=== PATIENT | male | born 1960 | race Caucasian/White ===

== ENCOUNTER 2022-05-11 09:37 | Inpatient (IN) | payer MEDICAID ==
[2022-05-02 15:56] LABS: BASOPHILS # (AUTO) 0.1 X10'3 (0-0.2); BASOPHILS % (AUTO) 1.1 % (0-1); EOSINOPHILS # (AUTO) 0.3 X10'3 (0-0.9); EOSINOPHILS % (AUTO) 6.2 % (0-6); LYMPHOCYTES # (AUTO) 1.7 X10'3 (1.1-4.8); LYMPHOCYTES % (AUTO) 30.8 % (21-51); MEAN CORPUSCULAR HEMOGLOBIN 31.6 PG (27.0-31.0); MEAN CORPUSCULAR HGB CONC 34.2 g/dL (33.0-36.5); MEAN CORPUSCULAR VOLUME 92.4 FL (78-98); MEAN PLATELET VOLUME 7.4 FL (7.4-10.4); MONOCYTES # (AUTO) 0.5 X10'3 (0-0.9); MONOCYTES % (AUTO) 9.4 % (2-12); NEUTROPHILS # (AUTO) 2.8 X10'3 (1.8-7.7); NEUTROPHILS % (AUTO) 52.5 % (42-75); PRE OP HEMATOCRIT 47.1 % (42.0-52.0); PRE OP HEMOGLOBIN 16.1 g/dL (14.0-17.9); PRE OP PLATELET COUNT 292 X10'3 (140-440); RED CELL DISTRIBUTION WIDTH 14.1 % (11.5-14.5)
[2022-05-02 16:01] LABS: TOTAL CARBON DIOXIDE 27.6 MMOL/L (24-32)
[2022-05-02 16:33] LABS: ALBUMIN 4.1 G/DL (3.4-5.0); ALBUMIN/GLOBULIN RATIO 1.3 (1.1-1.5); ALKALINE PHOSPHATASE 76 IU/L (46-116); BLOOD UREA NITROGEN 18 MG/DL (7-18); BUN/CREATININE RATIO 18.2 (10.0-20.0); CHLORIDE 103 MMOL/L (99-107); CREATININE 0.99 MG/DL (0.60-1.10); PRE OP ALT 28 U/L (30-65); PRE OP ANION GAP 8 (8-16); PRE OP AST 25 U/L (10-37); PRE OP BILIRUB, TOTAL 0.3 MG/DL (0.0-1.0); PRE OP GLUCOSE 89 MG/DL (70-104); PRE OP POTASSIUM 4.3 MMOL/L (3.4-5.1); PRE OP SODIUM 139 MMOL/L (135-145); TOTAL PROTEIN 7.3 G/DL (6.4-8.2); eGFR 76 ML/MIN
[~2022-05-11] VITALS: Ht 185.4 cm; Wt 95.3 kg
[2022-05-11] VITALS (21 sets, daily range): BP systolic 70–126; BP diastolic 34–83
[~2022-05-11 09:37] MED LIST: ASPI-101 PO; DILT240C88 PO; DILT60TA41 PO; cefazolin 2gm/D5W 100mL 100 ML IV ONE; ringers solution, lacted 1,000 ML IV SCH; tetracaine 1% (10mg/ml) pres. free inj. ONE; tranexamic acid inj. 1,000 MG in normal saline IV soln 100ML IV ONE; vancomycin 1,500 MG in NS 300ml IV soln IV ONE
--- NOTE | 2022-05-11 09:45 | NUR ---
TOTAL JOINT CHARTING: COMPLETED 5 DAYS PREOP MUPIROCIN OINTMENT AND HIBICLENS SHOWERS. [facility]'S WNL. LEFT DORSALIS PEDAL PULSE STRONG AND MARKED. DID NOT WATCH THE VIDEO, HOWEVER READ THE BOOKLET AND RELEVANT MATERIAL. Addendum: 05/11/22 at 1150 by Ann Ryan RN Amended: Links added.
[2022-05-11] MEDS ORDERED: famotidine 20mg tablet PO ONE (10:36)
[2022-05-11] MEDS ORDERED: epiNEPHrine 1 mg/ml inj ONE (11:09)
[2022-05-11] MEDS ORDERED: vancomycin 1,000mg inj ONE (11:10)
[2022-05-11] MEDS ORDERED: morphine 10mg/ml inj. ONE (11:10)
[2022-05-11] MEDS ORDERED: MIDAZolam 1mg/ml 10ml vial ONE (11:32)
[2022-05-11] MEDS ORDERED: LIDOcaine 2% (20mg/ml) 5ml vial ONE (11:33)
[2022-05-11] MEDS ORDERED: propofol inj 20 ML IV ONE ×2 (11:33)
[2022-05-11] MEDS ORDERED: fentaNYL/PF 50MCG/1 ML 2ML syringe ONE (11:33)
[2022-05-11] MEDS ORDERED: ROPIVAcaine 0.5% (5mg/ml) 30ml vial ONE ×2 (11:36→13:46)
[2022-05-11] MEDS ORDERED: fentaNYL/PF 50MCG/1 ML 2ML syringe IV PRN ×2 (11:40)
[2022-05-11] MEDS ORDERED: morphine 2 MG/ML inj. syringe IV PRN (11:40)
[2022-05-11] MEDS ORDERED: morphine 4 MG/ML inj SYRINge IV PRN (11:40)
[2022-05-11] MEDS ORDERED: ringers solution, lacted 1,000 ML IV SCH (11:40)
[2022-05-11] MEDS ORDERED: labetalol 20mg/4ml (5mg/ml) syringe IV PRN (11:40)
[2022-05-11] MEDS ORDERED: hydrALAZINE 20mg/ml inj. IV PRN (11:40)
[2022-05-11] MEDS ORDERED: ondansetron/PF 4mg/2ml inj IV PRN ×2 (11:40→14:40)
[2022-05-11] MEDS ORDERED: amiodarone in dextrose, iso-osm 150mg/100ml bag IV ONE (12:01)
[2022-05-11] MEDS ORDERED: desflurane 240ml liquid inh. IH ONE (12:01)
[2022-05-11] MEDS ORDERED: ROPIVAcaine 0.5% (5mg/ml) 30ml vial IJ ONE (13:04)
[2022-05-11] MEDS ORDERED: morphine 10mg/ml inj. IV ONE (13:06)
[2022-05-11] MEDS ORDERED: epiNEPHrine 1 mg/ml inj IM ONE (13:07)
[2022-05-11] MEDS ORDERED: dexamethasone sod phosphate 4mg/ml inj. ONE (13:46)
[2022-05-11] MEDS ORDERED: acetaminophen 325mg tablet PO PRN (14:40)
[2022-05-11] MEDS ORDERED: magnesium hydroxide 30ml (MOM) UD suspension PO PRN (14:40)
[2022-05-11] MEDS ORDERED: HYDROmorphone 1 mg/ml syringe IV PRN (14:40)
[2022-05-11] MEDS ORDERED: diphenhydrAMINE 25mg capsule PO PRN ×2 (14:40)
[2022-05-11] MEDS ORDERED: oxyCODONE IR 5mg (immed. release) tablet PO PRN ×2 (14:40)
[2022-05-11] MEDS ORDERED: naloxone 0.4 mg/ml inj IV PRN (14:40)
[2022-05-11] MEDS ORDERED: bisacodyl 10mg suppository rectal RC PRN (14:40)
[2022-05-11] MEDS ORDERED: HYDROmorphone inj. 0.5 MG/0.5 ML DISP.SYRIN IV PRN (14:40)
--- NOTE | 2022-05-11 15:00 | NUR ---
Received from OR via SURGICAL BED , accompanied by Anesthesiologist JED and report given by Anesthesiolgist. PATIENT WITH 20GPIV IN RIGHT FA RUNNING LR AT 100. STELLA AT THIS TIME. SPINAL LEVEL AT T6 AT THIS TIME. SCDS DONNED AND +DPS BILATERALLY. 10L MASK ON WITH 100% SATURATIONS. VSS AT THIS TIME. Addendum: 05/11/22 at 1532 by Yaakov Whiteside RN, RN Amended: Links added.
[2022-05-11] MEDS: ROPIVAcaine 0.2%/PF PUMP/bolus 545 ML ADDCANAL SCH (16:07)
[2022-05-11] MEDS ORDERED: diltiazem 30mg tablet PO PRN (16:10)
--- NOTE | 2022-05-11 16:40 | NUR ---
Report called to receiving nurse. Transferred via ORTHO BED WITH 2 BAGS OF LABELED Belongings . Special Issues communicated to receiving nurse PAULA BRUSH.VSS, DENIES PAIN. SENSATION LEVEL AT T 10 CURRENTLY. PATIENT REPORT GIVEN AND ALL QUESTIONS ANSWERED. ACCOMPANIED PATIENT TO THE FLOOR.ALL QUESTIONS ANSWERED AND VSS. Addendum: 05/11/22 at 1651 by Yaakov Whiteside RN RN Amended: Links added.
--- NOTE | 2022-05-11 16:45 | NUR ---
Received report from Yaakov BRUSH, patient arrived to floor via hospital bed assisted by recovery room staff accompanied by his . Patient is AOx4 able to make needs known. VS obtained and stable, patient denies pain at this time. Assessment performed, reposition assisted, and orientation provided to room/call light. Patient states understanding.
[2022-05-11] MEDS: ceFAZolin/D5W- 1GM premix 50 ML IV SCH (17:21)
[2022-05-11] MEDS ORDERED: tranexamic acid inj. 950 MG in normal saline 100ml IV soln 90.5 ML IV ONE (18:00)
--- NOTE | 2022-05-11 18:00 | NUR ---
I have reviewed and agree with interventions, assessments and documentation by Kassidy Pascual LVN.
--- NOTE | 2022-05-11 18:16 | NUR ---
Patient reports that he feels "chest tightness, this happens occasionally with my afib and I'll take 1 60mg diltiazem, if that doesn't doesn't resolve it then I'll take one more. If I don't take something then it'll feel like a donkey is kicking my chest, HR will go up to 180's." Dr. Irving contacted and notified, orders were already acknowledged for 60mg diltiazem PRN for chest palpitations. Noted and carried out. HR remains stable fluctuating from 65-80's. Information provided in report to oncoming nurse. Addendum: 05/11/22 at 1829 by Kassidy Loera LVN Patient denies SOB, chest pain, dizziness, and changes to vision
--- NOTE | 2022-05-11 18:28 | NUR ---
Problems reprioritized. Patient report given, questions answered & plan of care reviewed with Yinka BRUSH.
[2022-05-11] MEDS ORDERED: vancomycin/NS 1 GM ADD-VANTAGE 250 ML IV SCH (20:00)
[2022-05-11] MEDS: sennosides 8.6mg tablet PO SCH (20:04)
[2022-05-11] MEDS: gabapentin 300mg capsule PO SCH (20:06)
[2022-05-11] MEDS: acetaminophen 325mg tablet PO SCH (20:06)
[2022-05-11] MEDS: potassium cl 20mEq in 1/2 NS 1,000 ML IV SCH (22:40)
[2022-05-11] MEDS ORDERED: normal saline 500ml IV soln 500 ML IV ONE (22:45)
[2022-05-12] VITALS (17 sets, daily range): BP systolic 77–113; BP diastolic 47–72
[2022-05-12] MEDS: ceFAZolin/D5W- 1GM premix 50 ML IV SCH (00:04)
[2022-05-12] MEDS: potassium cl 20mEq in 1/2 NS 1,000 ML IV SCH ×4 (02:00→21:24)
[2022-05-12] MEDS: acetaminophen 325mg tablet PO SCH ×4 (02:06→20:11)
--- NOTE | 2022-05-12 06:45 | NUR ---
Approximally 1999, 05/11/22 pt B/P went down to 70/35. Called Dr Irving. He ordered 500 ml bolus of NS. Systolic B/P returned to greater than 100.
--- NOTE | 2022-05-12 06:51 | NUR ---
Patient in room [facility] 340. I have received report from Yinka BRUSH and had the opportunity to ask questions and assume patient care.
--- NOTE | 2022-05-12 07:43 | NUR ---
Call placed to Dr. Irving to notify of patient c/o dizziness while working with PT. Orthostatic BP obtained, BP while sitting 96/56 HR 56, BP while standing 79/50 HR 70. Patient reports dizziness while standing. Received telephone order to hold scheduled diltiazeMD ana will request hospitalist. Patient is in bed resting at this time, denies dizziness, changes to vision, SOB, and chest pain. Will continue to assess for any changes
[2022-05-12] MEDS ORDERED: diltiazem CD 120mg capsule (once-daily) PO SCH (08:00)
[2022-05-12] MEDS ORDERED: enoxaparin 40mg/0.4ml syringe SQ SCH (08:00)
[2022-05-12] MEDS: gabapentin 300mg capsule PO SCH ×3 (08:52→20:11)
[2022-05-12] MEDS ORDERED: traMADol 50MG tablet PO PRN (09:10)
[2022-05-12] MEDS: traMADol 50MG tablet PO PRN ×2 (09:27→13:22)
[2022-05-12 09:47] LABS: ALANINE AMINOTRANSFERASE 20 U/L (12-78); ALBUMIN 3.1 G/DL (3.4-5.0); ALBUMIN/GLOBULIN RATIO 1.1 (1.1-1.5); ALKALINE PHOSPHATASE 58 IU/L (46-116); ANION GAP 6 (8-16); ASPARTATE AMINO TRANSFERASE 17 U/L (10-37); BILIRUBIN,TOTAL 0.5 MG/DL (0.1-1.0); BLOOD UREA NITROGEN 12 MG/DL (7-18); BUN/CREATININE RATIO 13.2 (10.0-20.0); CALCIUM 7.9 MG/DL (8.5-10.1); CHLORIDE 105 MMOL/L (99-107); CREATININE 0.91 MG/DL (0.60-1.10); GLUCOSE 123 MG/DL (70-104); POTASSIUM 4.3 MMOL/L (3.5-5.1); SODIUM 137 MMOL/L (135-145); TOTAL CARBON DIOXIDE 26.3 MMOL/L (24-32); TOTAL PROTEIN 5.8 G/DL (6.4-8.2); eGFR 84 ML/MIN
--- NOTE | 2022-05-12 10:38 | NUR ---
0900- BP noted 108/65, patient continues to deny symptoms of hypotension. AOx4, able to make needs known. 1030- BP noted 91/57, patient has 1/2 NS 20K infusing at 125ml/hr, still continues with no symptoms. Page sent to hospitalist PAGER ID: [phone] MESSAGE: [phone]- Please call me regarding patient's BP, ASHLEY Yi [phone]
[2022-05-12] MEDS ORDERED: normal saline 500ml IV soln 500 ML IV ONE (10:45)
[2022-05-12 11:12] LABS: BASOPHILS % (AUTO) 0.1 % (0-1); EOSINOPHILS % (AUTO) 0 % (0-6); HEMATOCRIT 40.5 % (42.0-52.0); HEMOGLOBIN 13.3 g/dl (14.0-17.9); LYMPHOCYTES # (AUTO) 0.7 X10'3 (1.1-4.8); LYMPHOCYTES % (AUTO) 5.3 % (21-51); MEAN CORPUSCULAR HEMOGLOBIN 30.5 PG (27.0-31.0); MEAN CORPUSCULAR HGB CONC 32.9 g/dL (33.0-36.5); MEAN CORPUSCULAR VOLUME 92.6 FL (78-98); MEAN PLATELET VOLUME 7.9 FL (7.4-10.4); MONOCYTES % (AUTO) 7.5 % (2-12); NEUTROPHILS # (AUTO) 11.7 X10'3 (1.8-7.7); NEUTROPHILS % (AUTO) 87.1 % (42-75); PLATELET COUNT 251 X10'3 (140-440); RED BLOOD COUNT 4.38 X10'6 (4.70-6.10); RED CELL DISTRIBUTION WIDTH 14.1 % (11.5-14.5); WHITE BLOOD COUNT 13.4 X10'3 (4.5-11.0)
--- NOTE | 2022-05-12 11:45 | NUR ---
Joint surgery consult: Pt s/p L knee surgery this admit per EMR. Pt seen by NA for written/verbal high protein diet ed w/ RD contact information provided. NA encouraged pt to contact dietitian's office if nutrition questions/concerns. Addendum: 05/12/22 at [address] Amended: Links added.
--- NOTE | 2022-05-12 14:49 | NUR ---
There is not an order for ramos catheter. 10cc sterile water obtained from the ballon, ramos catheter removed and patient tolerated well. Urinal provided and encouraged to use
[2022-05-12] MEDS ORDERED: morphine 2 MG/ML inj. syringe IV PRN (16:10)
--- NOTE | 2022-05-12 16:19 | NUR ---
Patient up to work with PT BP while laying down 111/70 HR 80 sitting 103/67 HR 77 Patient reports some dizziness standing 77/47 HR 68 Patient reports dizziness laying back down 100/54 HR [address] Swenson notified, also notified that patient reports unrelieved pain from tramadol. New order for patient to wear ABD binder and for 2mg morphine IV PRN Q4 for severe pain unrelieved by PO medication. Patient notified and agreeable, requesting to try brandon. paged, awaiting response
[2022-05-12] MEDS: HYDROcodone/acetaminophen 5mg/325mg tablet PO PRN ×2 (16:56→21:24)
--- NOTE | 2022-05-12 19:12 | NUR ---
Problems reprioritized. Patient report given, questions answered & plan of care reviewed with Prudence RN.
--- NOTE | 2022-05-12 19:31 | NUR ---
Patient in room [facility]. I have received report from PAULA TAYLOR and had the opportunity to ask questions and assume patient care.
[2022-05-12] MEDS: celeCOXIB 100mg capsule PO SCH (20:10)
[2022-05-12] MEDS: sennosides 8.6mg tablet PO SCH (20:11)
[2022-05-12] MEDS: apixaban 5mg tablet PO SCH (20:11)
[2022-05-13] VITALS (7 sets, daily range): BP systolic 97–131; BP diastolic 49–76
[2022-05-13] MEDS: acetaminophen 325mg tablet PO SCH ×3 (02:00→14:00)
[2022-05-13] MEDS: HYDROcodone/acetaminophen 5mg/325mg tablet PO PRN ×5 (02:23→21:18)
--- NOTE | 2022-05-13 06:21 | NUR ---
Problems reprioritized. Patient report given, questions answered & plan of care reviewed with CONCEPCIÓN TAYLOR.
--- NOTE | 2022-05-13 06:38 | NUR ---
Received report from GONSALO Tejada. Went over plan of care, concerns, questions. Patient checked on, NAD at this time. Bed in lowest position/ locked, call blayne w/ in reach.
--- NOTE | 2022-05-13 06:46 | NUR ---
Patient in room [facility] 340. I have received report from Madiha WATTS and had the opportunity to ask questions and assume patient care. Pt is laying supine in bed, and is resting comfortably. Pt on RA. No s/s of distress, or s/s of pain at this time. BLL, call light wihtin reach, frequently used items inreach, frequent rounding, manager state socks on, will continue to monitor. Addendum: 05/13/22 at 0757 by Asha Gutiérrez RN Report received for 340 bed B, not 340a
[2022-05-13] MEDS: potassium cl 20mEq in 1/2 NS 1,000 ML IV SCH (07:15)
[2022-05-13] MEDS: apixaban 5mg tablet PO SCH ×2 (08:28→21:19)
[2022-05-13] MEDS: celeCOXIB 100mg capsule PO SCH ×2 (08:29→21:18)
[2022-05-13] MEDS: gabapentin 300mg capsule PO SCH ×3 (08:29→21:17)
[2022-05-13] MEDS: ROPIVAcaine 0.2% (10 MG/5 ML) BOLUS INJECTION ADDCANAL PRN (11:13)
[2022-05-13] MEDS: ROPIVAcaine 0.2%/PF PUMP/bolus 545 ML ADDCANAL SCH (11:15)
--- NOTE | 2022-05-13 13:43 | NUR ---
PT just got done ambulating/ evaluating s/p Sx. Informed me the patient is doing fair, vitals stayed in range this time while ambulating. Noted the patient to stay one more night due to lack of mobility at this time.
[2022-05-13] MEDS ORDERED: acetaminophen 325mg tablet PO PRN (14:40)
--- NOTE | 2022-05-13 18:04 | NUR ---
Placed pt on TELE number [id number]
[2022-05-13] MEDS: sennosides 8.6mg tablet PO SCH (21:19)
[2022-05-14] VITALS (8 sets, daily range): BP systolic 95–129; BP diastolic 56–80
[2022-05-14] MEDS: HYDROcodone/acetaminophen 5mg/325mg tablet PO PRN ×5 (02:59→21:44)
[2022-05-14] MEDS ORDERED: HYDROcodone/acetaminophen 5mg/325mg tablet PO ONE (05:00)
--- NOTE | 2022-05-14 06:59 | NUR ---
Patient in room [facility]. I have received report from Pawan Tovar RN and had the opportunity to ask questions and assume patient care.
--- NOTE | 2022-05-14 07:07 | NUR ---
Received call from Tele monitor, converted to A-fib. around Midnight. Hospitalist notified.
[2022-05-14] MEDS: apixaban 5mg tablet PO SCH ×2 (07:23→19:28)
[2022-05-14] MEDS: celeCOXIB 100mg capsule PO SCH ×2 (07:23→19:28)
[2022-05-14] MEDS: gabapentin 300mg capsule PO SCH ×3 (07:23→20:03)
[2022-05-14] MEDS ORDERED: normal saline 500ml IV soln 500 ML IV ONE (10:00)
[2022-05-14] MEDS: CefTRIAXone/D5W-Rocephin 1gm 50 ML IV SCH (12:13)
[2022-05-14 12:34] LABS: BASOPHILS # (AUTO) 0.1 X10'3 (0-0.2); BASOPHILS % (AUTO) 0.9 % (0-1); EOSINOPHILS # (AUTO) 0.2 X10'3 (0-0.9); EOSINOPHILS % (AUTO) 2.3 % (0-6); HEMATOCRIT 35.1 % (42.0-52.0); HEMOGLOBIN 12.3 g/dl (14.0-17.9); LYMPHOCYTES # (AUTO) 0.6 X10'3 (1.1-4.8); LYMPHOCYTES % (AUTO) 6.7 % (21-51); MEAN CORPUSCULAR HEMOGLOBIN 32.3 PG (27.0-31.0); MEAN CORPUSCULAR HGB CONC 35.1 g/dL (33.0-36.5); MEAN CORPUSCULAR VOLUME 91.9 FL (78-98); MEAN PLATELET VOLUME 7.6 FL (7.4-10.4); MONOCYTES # (AUTO) 0.6 X10'3 (0-0.9); MONOCYTES % (AUTO) 6.4 % (2-12); NEUTROPHILS # (AUTO) 7.3 X10'3 (1.8-7.7); NEUTROPHILS % (AUTO) 83.7 % (42-75); PLATELET COUNT 191 X10'3 (140-440); RED BLOOD COUNT 3.82 X10'6 (4.70-6.10); RED CELL DISTRIBUTION WIDTH 14.2 % (11.5-14.5); WHITE BLOOD COUNT 8.7 X10'3 (4.5-11.0)
[2022-05-14 12:49] LABS: ALANINE AMINOTRANSFERASE 18 U/L (12-78); ALBUMIN 2.8 G/DL (3.4-5.0); ALBUMIN/GLOBULIN RATIO 0.7 (1.1-1.5); ALKALINE PHOSPHATASE 58 IU/L (46-116); ANION GAP 5 (8-16); ASPARTATE AMINO TRANSFERASE 22 U/L (10-37); BILIRUBIN,TOTAL 0.4 MG/DL (0.1-1.0); BLOOD UREA NITROGEN 11 MG/DL (7-18); CALCIUM 8.5 MG/DL (8.5-10.1); CHLORIDE 102 MMOL/L (99-107); GLUCOSE 92 MG/DL (70-104); SODIUM 135 MMOL/L (135-145); TOTAL CARBON DIOXIDE 27.8 MMOL/L (24-32); TOTAL PROTEIN 6.6 G/DL (6.4-8.2); eGFR 75 ML/MIN
[2022-05-14] MEDS ORDERED: thiamine 100mg tablet PO ONE (14:55)
--- NOTE | 2022-05-14 18:25 | NUR ---
Problems reprioritized. Patient report given, questions answered & plan of care reviewed with Darian BRUSH.
[2022-05-14] MEDS: sennosides 8.6mg tablet PO SCH (20:03)
[2022-05-14] MEDS: ROPIVAcaine 0.2% (10 MG/5 ML) BOLUS INJECTION ADDCANAL PRN (22:44)
[2022-05-15] MEDS: HYDROcodone/acetaminophen 5mg/325mg tablet PO PRN ×3 (02:57→12:58)
--- NOTE | 2022-05-15 06:30 | NUR ---
Patient in room [facility]. I have received report from Darian BRUSH and had the opportunity to ask questions and assume patient care.
[2022-05-15 06:33] LABS: BASOPHILS % (AUTO) 0.5 % (0-1); EOSINOPHILS # (AUTO) 0.2 X10'3 (0-0.9); EOSINOPHILS % (AUTO) 2.8 % (0-6); HEMATOCRIT 34.8 % (42.0-52.0); HEMOGLOBIN 11.7 g/dl (14.0-17.9); LYMPHOCYTES # (AUTO) 0.8 X10'3 (1.1-4.8); LYMPHOCYTES % (AUTO) 11.2 % (21-51); MEAN CORPUSCULAR HGB CONC 33.8 g/dL (33.0-36.5); MEAN CORPUSCULAR VOLUME 91.8 FL (78-98); MONOCYTES # (AUTO) 0.6 X10'3 (0-0.9); MONOCYTES % (AUTO) 7.5 % (2-12); NEUTROPHILS # (AUTO) 5.9 X10'3 (1.8-7.7); PLATELET COUNT 214 X10'3 (140-440); RED BLOOD COUNT 3.79 X10'6 (4.70-6.10); RED CELL DISTRIBUTION WIDTH 14.3 % (11.5-14.5); WHITE BLOOD COUNT 7.5 X10'3 (4.5-11.0)
[2022-05-15 06:39] LABS: ALANINE AMINOTRANSFERASE 24 U/L (12-78); ALBUMIN 2.4 G/DL (3.4-5.0); ALBUMIN/GLOBULIN RATIO 0.6 (1.1-1.5); ALKALINE PHOSPHATASE 60 IU/L (46-116); ANION GAP 4 (8-16); ASPARTATE AMINO TRANSFERASE 26 U/L (10-37); BILIRUBIN,TOTAL 0.4 MG/DL (0.1-1.0); BLOOD UREA NITROGEN 7 MG/DL (7-18); BUN/CREATININE RATIO 7.3 (10.0-20.0); CALCIUM 8.5 MG/DL (8.5-10.1); CHLORIDE 105 MMOL/L (99-107); CREATININE 0.96 MG/DL (0.60-1.10); GLUCOSE 105 MG/DL (70-104); POTASSIUM 4.2 MMOL/L (3.5-5.1); SODIUM 138 MMOL/L (135-145); TOTAL CARBON DIOXIDE 28.9 MMOL/L (24-32); TOTAL PROTEIN 6.1 G/DL (6.4-8.2); eGFR 79 ML/MIN
[2022-05-15 06:52] VITALS: BP 120/74
[2022-05-15] MEDS: gabapentin 300mg capsule PO SCH ×2 (07:28→12:56)
[2022-05-15] MEDS: CefTRIAXone/D5W-Rocephin 1gm 50 ML IV SCH (07:28)
[2022-05-15] MEDS: celeCOXIB 100mg capsule PO SCH (07:28)
[2022-05-15] MEDS: apixaban 5mg tablet PO SCH (07:29)
[2022-05-15] MEDS ORDERED: HYDR-3964 PO ×2 (09:03)
[2022-05-15] MEDS ORDERED: gabapentin capsule PO (09:03)
[2022-05-15] MEDS ORDERED: APIX5TAB3 PO ×3 (09:03→10:39)
[2022-05-15] MEDS ORDERED: HYDR-3965 PO (10:37)
[2022-05-15] MEDS ORDERED: GABA300C PO (10:37)
[2022-05-15 11:36] VITALS: BP 114/69
[2022-05-15] MEDS: ROPIVAcaine 0.2%/PF PUMP/bolus 545 ML ADDCANAL SCH (11:40)
[2022-05-15 11:52] VITALS: BP 114/69
--- NOTE | 2022-05-15 14:30 | NUR ---
Received Discharge orders, Reviewed with patient and spouse, understanding verbalized. IV Cannula removed with catheter intact. Patient wheeled to lobby with belongings.
== END 2022-05-15 14:20 | disposition home or self-care (01) | DRG 326 ==
LOC: PAS IN 09:37 → SUR 3N 16:59
PROVIDERS: ADMIT Orthopaedic Surgery; ATTEND Orthopaedic Surgery
PROC: 3E0T3BZ Introduction of Anesthetic Agent into Peripheral Nerves and Plexi, Percutaneous Approach (ICD-10-PCS; 2022-05-11)
PROC: 3E0T33Z Introduction of Anti-inflammatory into Peripheral Nerves and Plexi, Percutaneous Approach (ICD-10-PCS; 2022-05-11)
PROC: 0SRD0JA Replacement of Left Knee Joint with Synthetic Substitute, Uncemented, Open Approach (ICD-10-PCS; principal; 2022-05-11 12:01)
DX: M17.12 Unilateral primary osteoarthritis, left knee (principal); F17.290 Nicotine dependence, other tobacco product, uncomplicated; I48.0 Paroxysmal atrial fibrillation; G62.9 Polyneuropathy, unspecified; G89.29 Other chronic pain; I95.1 Orthostatic hypotension; R50.9 Fever, unspecified; M19.011 Primary osteoarthritis, right shoulder; Z79.01 Long term (current) use of anticoagulants; Z79.899 Other long term (current) drug therapy; Z79.82 Long term (current) use of aspirin
CPT/HCPCS: 36415; 71046; 73560; 80053; 82948; 83605; 85025; 87040; 87081; 97110; 97116; 97161; 97530; A4215; A6253; A6446; A6449; A7000; C1758; C1776; C9250; G0378; J0171; J0282; J0690; J0696; J1100; J1170; J1650; J2250; J2274; J2704; J2795; J3010; J3370; J3480; J3490; J7030; J7040; J7120

== ENCOUNTER 2023-10-06 06:04 | Outpatient (CLI) | payer MEDICAID ==
[~2023-10-06 06:04] MED LIST changes: -ASPI-101 PO; +PROSTAGENIX PO; -cefazolin 2gm/D5W 100mL 100 ML IV ONE; -ringers solution, lacted 1,000 ML IV SCH; -tetracaine 1% (10mg/ml) pres. free inj. ONE; -tranexamic acid inj. 1,000 MG in normal saline IV soln 100ML IV ONE; -vancomycin 1,500 MG in NS 300ml IV soln IV ONE
[2023-10-06] MEDS ORDERED: LIDOcaine 1% 30ml preserv. free vial ONE (06:29)
[2023-10-06] MEDS ORDERED: iohexol 300 MG/1 ML 50ml polymer ONE (06:29)
[2023-10-06] MEDS ORDERED: LIDOcaine 1%/PF 5ML 10 MG/ML VIAL ONE (06:29)
[2023-10-06] MEDS ORDERED: GADOTERATE MEGLUMINE 7.5 MMOL/15 ML VIAL IV ONE (06:29)
== END 2023-10-06 23:59 | disposition home or self-care (01) ==
LOC: RAD 06:04
PROVIDERS: ATTEND Orthopaedic Surgery
DX: M25.511 Pain in right shoulder (principal); M19.011 Primary osteoarthritis, right shoulder; M24.811 Other specific joint derangements of right shoulder, not elsewhere classified
CPT/HCPCS: 23350; 73222; 77002; A9575; J3490; Q9967; 73040

== ENCOUNTER 2024-02-17 15:33 | Emergency (ER) | payer MEDICARE, MEDICAID ==
[~2024-02-17] VITALS: Ht 185.4 cm; Wt 97.2 kg
[2024-02-17 15:41] VITALS: TEMP 98.4
[2024-02-17] MEDS: diltiazem-NS 100mg/100ml 100 ML IV SCH (15:55)
[2024-02-17] MEDS: diltiazem 5mg/ml 5ml inj. IV ONE (16:02)
[2024-02-17 16:20] LABS: BASOPHILS % (AUTO) 0.3 % (0-1); EOSINOPHILS # (AUTO) 0.1 X10'3 (0-0.9); HEMATOCRIT 47.1 % (42.0-52.0); HEMOGLOBIN 16.1 g/dl (14.0-17.9); LYMPHOCYTES # (AUTO) 1.3 X10'3 (1.1-4.8); LYMPHOCYTES % (AUTO) 13.6 % (21-51); MEAN CORPUSCULAR HEMOGLOBIN 31.2 PG (27.0-31.0); MEAN CORPUSCULAR HGB CONC 34.3 g/dL (33.0-36.5); MEAN PLATELET VOLUME 7.1 FL (7.4-10.4); MONOCYTES # (AUTO) 0.7 X10'3 (0-0.9); MONOCYTES % (AUTO) 7.7 % (2-12); NEUTROPHILS # (AUTO) 7.2 X10'3 (1.8-7.7); NEUTROPHILS % (AUTO) 77.4 % (42-75); PLATELET COUNT 218 X10'3 (140-440); RED BLOOD COUNT 5.17 X10'6 (4.70-6.10); RED CELL DISTRIBUTION WIDTH 15.3 % (11.5-14.5); WHITE BLOOD COUNT 9.3 X10'3 (4.5-11.0)
[2024-02-17 16:31] LABS: ALANINE AMINOTRANSFERASE 46 U/L (12-78); ALBUMIN 2.9 G/DL (3.4-5.0); ALBUMIN/GLOBULIN RATIO 0.9 (1.1-1.5); ALKALINE PHOSPHATASE 101 IU/L (46-116); ANION GAP 10 (8-16); ASPARTATE AMINO TRANSFERASE 10 U/L (10-37); BILIRUBIN,TOTAL 0.4 MG/DL (0.1-1.0); BLOOD UREA NITROGEN 20 MG/DL (7-18); BUN/CREATININE RATIO 17.1 (10.0-20.0); CALCIUM 8.6 MG/DL (8.5-10.1); CHLORIDE 103 MMOL/L (99-107); CREATININE 1.17 MG/DL (0.60-1.10); GLUCOSE 123 MG/DL (70-104); POTASSIUM 3.6 MMOL/L (3.5-5.1); SODIUM 138 MMOL/L (135-145); TOTAL CARBON DIOXIDE 25.3 MMOL/L (24-32); TOTAL PROTEIN 6.3 G/DL (6.4-8.2); eCRCL 71 ML/MIN; eGFR 63 ML/MIN
[2024-02-17] MEDS: digoxin 250mcg/ml 2ml ampule IV ONE (16:36)
[2024-02-17] MEDS: magnesium sulf-water 2g/50mL 50 ML IV ONE (17:14)
[2024-02-17] MEDS: etomidate 2mg/ml inj. IV ONE (18:24)
[2024-02-17] MEDS: etomidate 2mg/ml inj. IV STA (18:26)
[2024-02-17 20:43] VITALS: BP 116/89; PULSE 98; RESP 18; O2SAT 99
== END 2024-02-17 20:47 | disposition home or self-care (01) ==
LOC: ER 15:33
DX: I48.20 Chronic atrial fibrillation, unspecified (principal); Z79.899 Other long term (current) drug therapy; Z79.01 Long term (current) use of anticoagulants
CPT/HCPCS: 36415; 71045; 80053; 84484; 85025; 92960; 93005; 96374; 96375; 99291; A4620; J1160; J3490; J7030; 99152; 99153